=== PATIENT | male | born 1965 | race Caucasian/White ===

== ENCOUNTER 2023-09-09 15:47 | Emergency (ER) | payer BC, MEDICAID, SELFPAY ==
[2023-09-09 15:56] VITALS: BP 136/84; PULSE 124; RESP 16; TEMP 36.6; O2SAT 96; BMI 22.8
[2023-09-09 16:05] VITALS: BP 136/84; PULSE 124; RESP 16; O2SAT 96
--- NOTE | 2023-09-09 16:33 | W.ED.PSYCHS ---
HPI - Psych General: Chief Complaint: Psychiatric Symptoms Stated Complaint: [facility] sent, [facility] Time Seen by Provider: 09/09/23 16:17 Source: patient Mode of arrival: ambulatory History of Present Illness: 58-year-old male presents emergency room with acute anxiety. Patient is reporting acute anxiety. Patient has been sober from drug use for the last 13 months he came to out of have any last evening him consultation with his sponsor that he had titrated addictions for drugs and instead was now addicted to his ex girlfriend. He is extremely anxious over this he had called [facility] [place] he is not homicidal or suicidal he is very clear about this. He is just very anxious he is not currently on any medications at all he wanted to talk someone to get started on some medicines for this. Review of Systems Const: Denies: fever(s) or chills Card: Denies: chest pain Resp: Denies: dyspnea GI: Denies: abdominal pain : Denies: dysuria, urinary frequency or urinary urgency Musc: Denies: neck pain or back pain Skin/Breast: Denies: rash PFSH ED PFSH: Medical History Depression Severe methamphetamine use disorder Social History Current gender identity: Male Physical Exam Const: COMMON NORMALS: no acute distress GENERAL APPEARANCE: cooperative and comfortable ORIENTATION/CONSCIOUSNESS: Yes awake, Yes oriented to person, Yes oriented to place and Yes oriented to time HENMT: COMMON NORMALS: normocephalic, atraumatic and hearing grossly normal bilaterally HEAD & SCALP: normocephalic and atraumatic Resp: COMMON NORMALS: normal respiratory effort, No retractions, No use of accessory muscles and clear to auscultation bilaterally AUSCULTATION: clear to auscultation bilaterally Cardio: COMMON NORMALS: regular rate, regular rhythm and No murmurs present (Cardio) RATE: regular rate RHYTHM: regular rhythm GI: COMMON NORMALS: Soft to palpation and No hepatosplenomegaly present AUSCULTATION: Yes normoactive bowel sounds PALPATION: Yes Soft to palpation, No Tenderness to palpation present (GI), No Guarding due to palpation present (GI) and Yes No hepatosplenomegaly present Extremity: COMMON NORMALS: normal to inspection, capillary refill normal, no clubbing, cyanosis or edema, no calf tenderness and no pedal edema Neuro: SENSORIUM/ORIENTATION: Yes oriented to person, Yes oriented to place and Yes oriented to time Skin: COMMON NORMALS: no rashes or lesions noted GENERAL SKIN EXAM: no rashes or lesions noted Course Vital Signs: Vital signs: Vital Signs Temperature 97.8 F 09/09/23 15:56 Pulse Rate 108 H 09/09/23 16:48 Respiratory Rate 16 09/09/23 16:05 Blood Pressure 136/84 09/09/23 16:05 Pulse Oximetry 97 09/09/23 16:48 Oxygen Delivery Me thod Room Air 09/09/23 16:05 MDM - Psych Medical Decision Making Patient is not homicidal or suicidal. He is actually almost slightly euphoric over this epiphany. Discussed with Dr. Blankenship will discharge patient from the emergency room and direct him to the crisis intervention center. Medical Records I reviewed the patient's medical records. Lab Data I reviewed the patient's lab results. No radiology studies performed this visit Discharge Plan Discharge Patient Disposition: Home Clinical Impression: Acute anxiety Condition: Stable Prescriptions: No Action No Known Home Medications Discharge Orders: Discharge ED (Routine); Ordered 09/09/23 Ordered By: Porfirio Graham Referrals: Mendel Mancilla MD [Primary Care Provider] - Discharge Diet: Usual diet Discharge Activity: Resume usual activity Patient Instructions: Opioid Safety, Pain Management Activity Restrictions/Additional Instructions: Thank you for choosing [facility] for your healthcare needs today. Please realize this is an emergency room and that we are providing you with a medical screening exam and this may not be complete and all inclusive of all the testing and or work up that you may need to determine your ailment or severity of your illness. It is very important that you follow up as instructed or that you return to the Emergency Department should you have concerns or if your condition changes or worsens in any way. You are seen today in the emergency room for acute anxiety. Discussed your case with on-call psychiatry who Dr. Blankenship and I both feel that the most appropriate place for you to receive services will be cardiac stabilization since there is no acute issue right now that would require hospitalization. Will be discharged from the emergency room and staff will take you to the crisis stabilization unit. Coding Level of Care Code ED Type [employer] for Tonny Trejo
[2023-09-09 16:48] VITALS: PULSE 108; O2SAT 97
== END 2023-09-09 16:50 | disposition home or self-care (01) ==
PROVIDERS: Emergency Provider Family Medicine; PCP Family Medicine
DX: F41.9 Anxiety disorder, unspecified (principal)
CPT/HCPCS: 99283